=== PATIENT | female | born 1950 | race Caucasian/White ===

== ENCOUNTER → 2018-08-29 10:17 | Outpatient (CLI) | payer MEDICARE, SELFPAY ==
[2018-08-30 07:02] LABS: Vitamin D 25 Hydroxy 40.7 ng/mL (30.0-100.0)
== END ==
PROVIDERS: PCP Internal Medicine Adolescent Medicine; Visit Provider Internal Medicine Adolescent Medicine
DX: E55.9 Vitamin D deficiency, unspecified (principal)
CPT/HCPCS: 36415; 82652

== ENCOUNTER → 2021-03-26 17:36 | Outpatient (CLI) | payer MEDICARE, SELFPAY ==
[2021-03-26 18:31] LABS: Chloride 104 mmol/L (98-107); Sodium 141 mmol/L (136-145)
[2021-03-26 18:34] LABS: Alanine Aminotransferase 15 U/L (12-78); Albumin Level 3.9 g/dl (3.5-5.0); Albumin/Globulin Ratio 1.6 (1.1-1.8); Alkaline Phosphatase 72 U/L (38-126); Aspartate Amino Transferase 22 U/L (14-36); Bilirubin,Total 0.2 mg/dl (0.2-1.3); Blood Urea Nitrogen 17 mg/dl (7-17); Carbon Dioxide 29 mmol/L (22.0-30.0); Cholesterol 172 mg/dl (140-200); Estimated Glomerular Filt Rate 71 ml/min (>60); GFR (African American) 86 ML/MIN (>60); Globulin 2.5 g/dL (1.3-3.2); Total Protein,Serum 6.4 g/dl (6.3-8.2); Triglycerides 164 mg/dl (30-150); VLDL Cholesterol 33 mg/dL (0-40)
[2021-03-26 18:35] LABS: Calcium 9.6 mg/dl (8.4-10.2); Chol/HDL Ratio 3.7 (1-3.5); Glucose 110 mg/dl (74-100); HDL Cholesterol 47 mg/dl (40-60)
[2021-03-26 18:46] LABS: Direct LDL Cholesterol 89.09 mg/dL (100-129)
[2021-03-26 19:04] LABS: Basophils % 0.5 % (0.1-2.0); Eosinophils # 0.1 K/mm3 (0.0-0.4); Eosinophils % 1.5 % (0.1-12.0); Hematocrit 42.9 % (37.0-47.0); Hemoglobin 13.3 g/dL (12.2-16.2); Mean Corpuscular Volume 109.8 fl (81-99); Mean Platelet Volume 9.6 fl (7.4-10.4); Monocytes # 0.3 K/mm3 (0.1-1.0); Monocytes % 4.2 % (1.7-9.3); Neutrophils # 5.3 K/mm3 (1.8-7.8); Neutrophils % 78.9 % (37.0-80.0); Platelet Count 240 K/mm3 (142-424); Red Blood Count 3.91 M/mm3 (4.20-5.40); Red Cell Distribution Width 13.8 % (11.5-17.5); White Blood Count 6.7 K/mm3 (4.8-10.8)
[2021-03-26 19:05] LABS: Thyroid Stimulating Hormone 0.38 uIU/mL (0.465-4.68)
[2021-03-26 20:05] LABS: Vitamin B12 440 pg/mL (239-931)
[2021-03-26 20:48] LABS: 25-OH Vitamin D, Total 84.5 ng/mL (30-100)
[2021-03-27 10:46] LABS: Free T4 (Free Thyroxine) 1.11 ng/dl (0.78-2.19)
== END ==
PROVIDERS: Internal Medicine Adolescent Medicine; Visit Provider Nurse Practitioner Family
DX: I10 Essential (primary) hypertension (principal); R53.81 Other malaise; R79.89 Other specified abnormal findings of blood chemistry; M85.80 Other specified disorders of bone density and structure, unspecified site; Z86.39 Personal history of other endocrine, nutritional and metabolic disease
CPT/HCPCS: 80053; 80061; 82306; 82607; 84439; 84443; 85025